=== PATIENT | male | born 1990 | race Caucasian/White ===

== ENCOUNTER 2021-01-28 10:21 | Emergency (ER) | payer OTHER ==
[~2021-01-28] VITALS: Ht 172.7 cm; Wt 63.5 kg
[~2021-01-28 10:21] MED LIST: NOHOMEMEDICATIONS
[2021-01-28 11:33] LABS: ABSOLUTE LYMPHOCYTES 1.1 thou/uL (0.8-5.3); ABSOLUTE MONOCYTES 0.3 thou/uL (0.0-1.2); ABSOLUTE NEUTROPHILS 7.1 thou/uL (1.6-8.1); BASOPHILS 0.2 %; HEMATOCRIT 42.5 % (42.0-52.0); HEMOGLOBIN 14.3 gm/dL (14.0-18.0); LYMPHOCYTES 12.4 %; MCH 31.3 pg (26.0-34.0); MCHC 33.6 g/dL (28.0-37.0); MCV 93.3 fL (80.0-100.0); MONOCYTES 3.5 %; NUCLEATED RBCS 0 /100WBC; PLATELET COUNT* 209 thou/uL (150-400); POLYS 83.9 %; RBC 4.55 mil/uL (4.50-6.00); RDW-CV 13.5 % (10.5-14.5); WBC 8.5 thou/uL (4.0-11.0)
[2021-01-28 11:41] LABS: ANION GAP 8 mmol/L (7-16); BUN 9 mg/dL (7-18); CALCIUM 8.9 mg/dL (8.5-10.1); CHLORIDE 107 mmol/L (98-107); CO2 26 mmol/L (21-32); CREATININE 0.9 mg/dL (0.6-1.3); GLUCOSE 97 mg/dL (70-99); POTASSIUM 4.2 mmol/L (3.5-5.1); SODIUM 141 mmol/L (136-145)
[2021-01-28 11:45] LABS: APTT 27.2 Seconds (25.0-31.3); PROTIME 10.5 Seconds (9.20-11.50)
[2021-01-28 11:53] LABS: ALBUMIN 4.1 g/dL (3.4-5.0); ALKALINE PHOSPHATASE 61 U/L (46-116); CK-MB MASS < 0.5 ng/mL (<0.5-3.6); LIPASE 88 U/L (73-393); MAGNESIUM 2.1 mg/dL (1.8-2.4); NT-PRO BRAIN NAT PEPTIDE 18 pg/mL (<300); SGOT 24 U/L (15-37); SGPT 36 U/L (30-65); TOTAL BILIRUBIN 0.4 mg/dL (<0.1-1.0)
[2021-01-28 12:08] VITALS: BP 121/75
--- NOTE | 2021-01-30 09:45 | EKG ---
[place] [address] ELECTROCARDIOGRAM REPORT Name: TYRONE OBRIEN Room: [facility]#: [id number] Admission: 01/28/21 Attend Phys: Discharge: 01/28/21 Date of : [birth year] Date of Service: 01/28/21 1026 Report #: [id number] THIS REPORT FOR: //name// [facility] ED Test Date: 2021-01-28 Test Time: 10:26:23 Pat Name: TYRONE OBRIEN Department: Room: Gender: Manager Metrology: CD : 1990 Requested By: Edwin Mari Order Number: [id number] MD: Albert Modi Measurements Intervals [place] Rate: 96 P: 81 [place]: 157 QRS: 39 QRSD: 82 T: 72 QT: 324 QTc: 410 Interpretive Statements Sinus rhythm Biatrial enlargement Baseline wander in lead(s) II,III,aVL,aVF Compared to ECG 11/09/2012 16:50:25 Atrial abnormality now present Electronically Signed On 01-30-2021 9:45:27 CDT by Albert Modi [email or web address] <ELECTRONICALLY SIGNED> By: Albert Modi MD, [facility] 01/30/21 0945 1026 1026 Albert Modi MD, [facility] /EPI
== END 2021-01-28 12:09 | disposition home or self-care (01) ==
LOC: M.ERS 10:21
PROVIDERS: Family Medicine
DX: R07.89 Other chest pain (principal); R00.2 Palpitations

== ENCOUNTER 2021-06-05 09:43 | Emergency (ER) | payer OTHER ==
[~2021-06-05] VITALS: Ht 175.3 cm; Wt 65.8 kg
[2021-06-05 10:14] LABS: ABSOLUTE LYMPHOCYTES 1.8 thou/uL (0.8-5.3); ABSOLUTE MONOCYTES 0.4 thou/uL (0.0-1.2); BASOPHILS 0.2 %; EOSINOPHILS 0.2 %; HEMATOCRIT 44.9 % (42.0-52.0); HEMOGLOBIN 15.1 gm/dL (14.0-18.0); LYMPHOCYTES 24.4 %; MCH 31.6 pg (26.0-34.0); MCHC 33.8 g/dL (28.0-37.0); MCV 93.6 fL (80.0-100.0); MONOCYTES 6.1 %; MPV 6.9 fl. (7.2-11.1); NUCLEATED RBCS 0 /100WBC; PLATELET COUNT* 227 thou/uL (150-400); POLYS 69.1 %; RBC 4.79 mil/uL (4.50-6.00); RDW-CV 13.1 % (10.5-14.5); WBC 7.3 thou/uL (4.0-11.0)
[2021-06-05 10:25] LABS: CALCIUM 8.9 mg/dL (8.5-10.1); CREATININE 1.1 mg/dL (0.6-1.3); POTASSIUM 3.9 mmol/L (3.5-5.1)
[2021-06-05 10:29] LABS: ALBUMIN 4.2 g/dL (3.4-5.0); MAGNESIUM 1.9 mg/dL (1.8-2.4); TOTAL BILIRUBIN 0.4 mg/dL (<0.1-1.0)
[2021-06-05] MEDS ORDERED: FLEXERIL PO (12:26)
--- NOTE | 2021-06-05 12:29 | EKG ---
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
[2021-06-05 12:36] VITALS: BP 112/64
--- NOTE | 2021-06-06 17:44 | EKG ---
[place] [address] ELECTROCARDIOGRAM REPORT Name: CAMILLEKHAI Room: 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
== END 2021-06-05 12:36 | disposition home or self-care (01) ==
LOC: M.ERS 09:43
PROVIDERS: Emergency Medicine Emergency Medical Services
DX: R07.89 Other chest pain (principal)

== ENCOUNTER → 2021-08-31 | Outpatient (CLI) | payer OTHER ==
[~2021-08-31] MED LIST changes: +FLEXERIL PO
== END ==
LOC: M.PUL 08:36 → M.RAD 08:36 → M.PUL 09:00
PROVIDERS: ATTEND Nurse Practitioner Family
DX: R07.89 Other chest pain (principal); F17.200 Nicotine dependence, unspecified, uncomplicated